=== PATIENT | male | born 1950 | race Caucasian/White ===

== ENCOUNTER 2017-03-03 09:14 | Outpatient (CLI) ==
--- NOTE | 2017-03-03 09:55 | DI ---
EXAM: Two views of the chest. History: Chronic obstructive pulmonary disease, history of smoking Comparison: Chest radiograph 09/24/2015 Findings: Heart size is within normal limits. No focal consolidation. No appreciable pleural flui d and no pneumothorax. No change in the right apical scarring. Postsurgical changes of the cervica l spine with stable fractured hardware screws. No acute osseous abnormalities. Impression: No acute cardiopulmonary process. No change compared to the prior study.
== END 2017-03-03 09:15 | disposition home or self-care (01) ==
LOC: RAD 09:14
PROVIDERS: ATTEND Internal Medicine
DX: J44.9 Chronic obstructive pulmonary disease, unspecified (principal); F17.210 Nicotine dependence, cigarettes, uncomplicated

== ENCOUNTER 2018-07-06 13:27 | Outpatient (CLI) ==
--- NOTE | 2018-07-06 15:14 | CT ---
EXAM: CT of the left knee with contrast History: Left knee swelling, medial left knee pain. Comparison: None available. Technique: Multiplanar CT images through the left knee were obtained following administration of IV contrast Findings: No acute fracture or dislocation. Small knee joint effusion. Moderate narrowing of the m edial compartment. Mild to moderate narrowing of the patellofemoral and lateral compartments with sm all osteophytes. There is superior patellar enthesiopathy. Anterior subcutaneous edema. No abscess . No Hook's cyst. The visualized arterial vasculature is intact. 1 cm osteochondral lesion of the medial femoral condyle best seen on postcontrast coronal image number 22. Impression: 1. Osteochondral lesion within the medial femoral condyle. 2. Small knee joint effusion. 3. Anterior subcutaneous edema. 4. 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
== END 2018-07-06 13:28 | disposition home or self-care (01) ==
LOC: RAD 13:27
PROVIDERS: ATTEND Internal Medicine
DX: M25.462 Effusion, left knee (principal)
CPT/HCPCS: 36415; 82565

== ENCOUNTER 2018-09-06 09:45 | Outpatient (CLI) | payer OTHER ==
--- NOTE | 2018-09-06 10:07 | DI ---
Exam: Two views of the chest. Comparison: 03/03/2017. Reason for exam: Cough smoking. FINDINGS: No pneumothorax, pleural effusion, or focal consolidation. The cardiac silhouette is not enlarged. The imaged osseous structures appear grossly unremarkable without acute fracture. Operati ve changes are seen in the cervical spine with similar appearing fracturing of the inferior screws. Impression: No acute cardiopulmonary process.
== END 2018-09-06 09:46 | disposition home or self-care (01) ==
LOC: RAD 09:45
PROVIDERS: ATTEND Internal Medicine
DX: R05 Cough (principal); F17.210 Nicotine dependence, cigarettes, uncomplicated

== ENCOUNTER 2018-11-15 06:41 | Outpatient (CLI) | payer OTHER ==
--- NOTE | 2018-11-16 08:25 | ECHO2D ---
Date of Exam: 11/15/18 Ordering Physician: DR. NADINE RUTH Room #: OP Reason for Echo: SOB, CHEST PAIN M-Mode Normal Adult Results LV Dimensions Normal Adult Results AoV Opening excursions >1.6 >1.6 LVEDD-base- 3.5-5.8 4.2 Ao root dimensions 2.0-3.7 3.4 LVESD-base- 3.1-4.6 L. Atrium dimensions 1.9-3.8 3.9 Post. Wall thickness 0.8-1.1 1.1 IV septum (thickness) 0.7-1.2 1.1 Post. Wall excursion 0.72-1.3 NORMAL Septal motion NORMAL Systolic motion R. Ventricular cavity 1.5-2.0 NORMAL LVEF 60% 53% Paradoxical septal wall motion NORMAL 2-D : 2-D M Mode Echocardiogram was performed using apical four chamber and left parasternal long and short axis views. Mitral Valve Prolapse noted Left parasternal and apical four chamber view. Tricuspid and aortic valves appear to be normal. Contractility of the left ventricle seems to be normal, so is the cavity size. Left atrial cavity size and aortic root appear to be normal. There is no pericardial effusion. There is no thrombus noted in the left ventricular or left aortic cavity. M-MODE: MV: MITRAL VALVE PROLAPSE LATE SYSTOLIC AV: NORMAL TV: NORMAL PV: CHAMBER SIZE: NORMAL WALL MOTION: NORMAL PERICARDIUM: NORMAL INTERPRETATION: 1. MITRAL VALVE PROLAPSE LATE SYSTOLIC 2. NORMAL LEFT VENTRICULAR CONTRACTILITY 3. NORMAL VALVES MTDD
== END 2018-11-15 06:42 | disposition home or self-care (01) ==
LOC: CAR 06:41
PROVIDERS: ATTEND Internal Medicine
DX: R07.9 Chest pain, unspecified (principal); R06.02 Shortness of breath
CPT/HCPCS: 93005; 93010

== ENCOUNTER 2018-11-20 06:45 | Outpatient (CLI) | payer OTHER ==
--- NOTE | 2018-11-21 10:10 | STRESSECHO ---
Date of Test:11/20/18 Ordering Physician: DR. NADINE RUTH Occupation: RETIRED Reason for Exam: SOB, CHEST PAIN Smoking History: 1 1/2 PK/DAY Height: 68" Weight: 155 LBS Current Medications: LORTAB, LIPITOR, NEXIUM Resting EKG: SINUS RHYTHM, NO ACUTE CHANGES Target Heart Rate: 130/154 S-T SEGMENT STAGE MPH/GRADE HEART RATE BPM BLOOD PRESSURE MMHG RHYTHM +/- ELEVATION DEPRESSION SYMPTOMS AT REST 60 BPM 134/74 [facility] SR X NONE 1 1.7/10% 112 BPM 180/62 [facility] SR X NONE 2 2.5/12% 3 3.4/14% 4 4.2/16% 5 5.0/18% Immediately After 132 BPM 196/54 MM[facility] SR X LEFT KNEE PAIN Minutes Post Exercise 4:00 78 BPM 186/68 MMHG SR X NONE Minutes Post Exercise DURATION OF EXERCISE: 5:30 MAXIMUM HEART RATE REACHED: 132 BPM REASON FOR TERMINATION: LEFT KNEE PAIN INTERPRETATION: 1. NO EVIDENCE OF ISCHEMIA BY ST-T WAVE 2. NO CHEST PAIN OR DISCOMFORT 3. NO ARRHYTHMIAS 4. BLOOD PRESSURE RESPONSE: SYSTOLIC HYPERTENSION WITH EXERCISE NORMAL LEFT VENTRICULAR CONTRACTILITY--RESTING AND POST EXERCISE MTDD
--- NOTE | 2018-11-21 10:12 | ECHOSTRESS ---
Date of Exam: 11/20/18 Ordering Physician: DR. NADINE RUTH Reason for Echo: SOB, CHEST PAIN, STRESS TEST--NO ISCHEMIA M-Mode Normal Adult Results LV Dimensions Normal Adult Results AoV Opening excursions >1.6 LVEDD-base- 3.5-5.8 Ao root dimensions 2.0-3.7 LVESD-base- 3.1-4.6 L. Atrium dimensions 1.9-3.8 Post. Wall thickness 0.8-1.1 IV septum (thickness) 0.7-1.2 Post. Wall excursion 0.72-1.3 Septal motion Systolic motion R. Ventricular cavity 1.5-2.0 LVEF 60% Paradoxical septal wall motion 2-D: NORMAL LEFT VENTRICULAR CONTRACTILITY--RESTING AND POST EXERCISE M-MODE: MV: AV: TV: PV: CHAMBER SIZE: WALL MOTION: NORMAL LEFT VENTRICULAR CONTRACTILITY--RESTING AND POST EXERCISE PERICARDIUM: INTERPRETATION: 1. NORMAL LEFT VENTRICULAR CONTRACTILITY--RESTING AND POST EXERCISE MTDD
== END 2018-11-20 06:46 | disposition home or self-care (01) ==
LOC: CAR 06:45
PROVIDERS: ATTEND Internal Medicine
DX: R06.02 Shortness of breath (principal); R07.9 Chest pain, unspecified